=== PATIENT | male | born 1985 | race Two or more races ===

== ENCOUNTER 2021-06-07 20:29 | Inpatient (IN) | payer SELFPAY ==
[~2021-06-07] VITALS: Ht 167.6 cm; Wt 77.8 kg
--- NOTE | 2021-06-08 02:31 | ED.ADGEN ---
Past Medical History Past Surgical History: No Surgical History General Adult EDM: Chief Complaint: ABDOMINAL PAIN HPI: HPI: Patient is a 36 year old male coming in for abdominal pain of vomiting for 1.5 to 2 days. Says he has vomited twice. Says the pain is periumbilical but sometimes radiates up to the epigastric area. Says the vomit was pinkish in color. States he had a bowel movement that was normal about 8 hours prior to assessment, denies any diarrhea or bloody stools. Denies any changes with urination. Denies any cough, chest pain, or fevers. No past medical surgical history, has not take any medications for this has not taken medications daily basis. Denies alcohol tobacco or drugs Review of Systems: Review of Systems: All other systems within normal limits except for as noted in the HPI Current Medications: Current Medications Medications (Trade) Dose Ordered Sig/Ariana Start Time Stop Time Status Last Admin Dose Admin Info (CONTRAST GIVEN -- Rx MONITORING) 1 each PRN DAILY PRN 06/08/21 03:45 06/10/21 03:44 Iohexol (Omnipaque 300 Mg/ml) 75 ml 1X ONCE 06/08/21 04:00 06/08/21 04:01 DC 06/08/21 04:00 75 ML Multi-Ingredient Mouthwash/Gargle (Gi Cocktail) 20 ml 1X ONCE 06/08/21 03:30 06/08/21 03:31 DC 06/08/21 03:17 20 ML Ondansetron HCl (Zofran) 4 mg 1X ONCE 06/08/21 03:30 06/08/21 03:31 DC 06/08/21 03:14 4 MG Sodium Chloride 500 ml @ 500 mls/hr 1X ONCE 06/08/21 03:30 06/08/21 04:29 DC 06/08/21 03:12 500 MLS/HR Allergies: Allergies: Allergies Coded Allergies Type Severity Reaction Last Updated Verified No Known Drug Allergies 06/08/21 No Physical Exam: PE: Constitutional: Well developed, well nourished, no acute distress, non-toxic appearance. [] HENT: Normocephalic, atraumatic, bilateral external ears normal, nose normal. [] Eyes: PERRLA, conjunctiva normal, no discharge. [] Neck: No rigidity, supple, no stridor. [] Cardiovascular: Regular rate and rhythm, brisk cap refill [] Lungs & Thorax: Non labored symmetric respirations, no tachypnea or respiratory distress [] Abdomen: Soft, nondistended, epigastric pain, negative Quezada sign, no McBurney's point tenderness, no guarding. Skin: Warm, dry, no erythema, no rash. [] Back: Unremarkable Extremities: No deformities, range of motion grossly intact, no lower extremity edema [] Neurologic: Alert and oriented X 3, no focal deficits noted. [] Psychologic: Affect normal, judgement normal, mood normal. [] Current Patient Data: Labs: Laboratory Tests Test 06/08/21 03:00 White Blood Count 10.2 x10^3/uL (4.0-11.0) Red Blood Count 5.49 x10^6/uL (4.30-5.70) Hemoglobin 15.0 g/dL (13.0-17.5) Hematocrit 43.9 % (39.0-53.0) Mean Corpuscular Volume 80 fL (79-100) Mean Corpuscular Hemoglobin 27 pg (25-35) Mean Corpuscular Hemoglobin Concent 34 g/dL (31-37) Red Cell Distribution Width 13.8 % (11.5-14.5) Platelet Count 265 x10^3/uL (140-400) Neutrophils (%) (Auto) 69 % (31-73) Lymphocytes (%) (Auto) 23 % (24-48) L Monocytes (%) (Auto) 7 % (0-9) Eosinophils (%) (Auto) 1 % (0-3) Basophils (%) (Auto) 0 % (0-3) Neutrophils # (Auto) 7.1 x10^3/uL (1.8-7.7) Lymphocytes # (Auto) 2.3 x10^3/uL (1.0-4.8) Monocytes # (Auto) 0.7 x10^3/uL (0.0-1.1) Eosinophils # (Auto) 0.1 x10^3/uL (0.0-0.7) Basophils # (Auto) 0.0 x10^3/uL (0.0-0.2) Sodium Level 139 mmol/L (136-145) Potassium Level 4.1 mmol/L (3.5-5.1) Chloride Level 104 mmol/L (98-107) Carbon Dioxide Level 28 mmol/L (21-32) Anion Gap 7 (6-14) Blood Urea Nitrogen 12 mg/dL (8-26) Creatinine 0.9 mg/dL (0.7-1.3) Estimated GFR (Cockcroft-Gault) 96.0 BUN/Creatinine Ratio 13 (6-20) Glucose Level 109 mg/dL (70-99) H Calcium Level 8.8 mg/dL (8.5-10.1) Total Bilirubin 0.3 mg/dL (0.2-1.0) Aspartate Amino Transferase (AST) 27 U/L (15-37) Alanine Aminotransferase (ALT) 45 U/L (16-63) Alkaline Phosphatase 62 U/L (46-116) Total Protein 7.1 g/dL (6.4-8.2) Albumin 4.0 g/dL (3.4-5.0) Albumin/Globulin Ratio 1.3 (1.0-1.7) Lipase 90 U/L (73-393) Laboratory Tests 06/08/21 03:00 Laboratory Tests 06/08/21 03:00 Vital Signs: Vital Signs Date Time Temp Pulse Resp B/P (MAP) Pulse Ox O2 Delivery O2 Flow Rate FiO2 06/08/21 05:49 56 18 117/72 (87) 98 Room Air EKG: EKG: [] Heart Score: C/O Chest Pain: No Risk Factors: Risk Factors: DM, Current or recent (<one month) smoker, HTN, HLP, family history of CAD, obesity. Risk Scores: Score 0 - 3: 2.5% MACE over next 6 weeks - Discharge Home Score 4 - 6: 20.3% MACE over next 6 weeks - Admit for Clinical Observation Score 7 - 10: 72.7% MACE over next 6 weeks - Early Invasive Strategies Radiology/Procedures: Radiology/Procedures: [facility] [address] [place] [address] IMAGING REPORT Signed PATIENT: AKASH BLUM ACCOUNT: [id number] : 1985 LOCATION: ER AGE: 36 SEX: M EXAM STATUS: REG ER ORD. PHYSICIAN: TERESITA FREGOSO MD REASON: periumbilical pain. vomiting, OMNI 300 75 ML IV PROCEDURE: CT ABD PELV W/ IV CONTRST ONLY Exam: CT abdomen/pelvis with intravenous contrast Indication: Periumbilical pain, vomiting Comparison: None Technique: Helical CT imaging performed of the abdomen and pelvis after the intravenous administration of 75 mL Omnipaque 300 contrast. Sagittal and coronal reformats were obtained. One or more of the following individualized dose reduction techniques were utilized for this examination: 1. Automated exposure control 2. Adjustment of the mA and/or kV according to patient size 3. Use of iterative reconstruction technique. Findings: Lower chest: Mild posterior atelectasis in the lung bases. Heart is normal in size. Liver: Normal. Gallbladder/Biliary Tree: Normal. Pancreas: Normal. Spleen: Normal. Adrenal Glands: Normal. Kidneys/Ureters/Bladder: Kidneys are normal in size and enhance symmetrically. No hydronephrosis. Ureters and bladder are normal. Reproductive Organs: Prostate gland is normal. Stomach, small bowel, and colon: Stomach is normal. There is an abnormal dilated loop of small bowel in the left lower quadrant measuring 3.3 cm in diameter. There is a possible transition point on image 60, series 2. No significant wall thickening or surrounding inflammation. No pneumatosis. The rest of the small bowel is normal in caliber. The appendix and colon are normal.. Vasculature: Abdominal aorta is normal in caliber. Lymph Nodes: No lymphadenopathy. Peritoneum and retroperitoneum: No free fluid or free air. Bones: No acute osseous abnormalities. Impression: 1. Dilated loops of small bowel in the left lower quadrant could reflect small bowel obstruction or enteritis. There may be a transition point in the left lower quadrant. Electronically signed by: Teresita Howard MD (06/08/2021 4:54 AM) [id number] DICTATED and SIGNED BY: TERESITA HOWARD MD DATE: 06/08/21 [id number] [] Course & Med Decision Making: Course & Med Decision Making Pertinent Labs and Imaging studies reviewed. (See chart for details) Discussed with Dr. Musa, will admit to the hospitalist. [] Dragon Disclaimer: Dragon Disclaimer: This electronic medical record was generated, in whole or in part, using a voice recognition dictation system. Departure Departure Impression: Primary Impression: Small bowel obstruction Disposition: ADMITTED INPATIENT Admitting Physician: NAIN Condition: STABLE Referrals: NO PCP (PCP) TERESITA FREGOSO MD Jun 08, 2021 02:31
[2021-06-08 03:07] LABS: BASO % 0 % (0-3); EOS # 0.1 x10^3/uL (0.0-0.7); EOS % 1 % (0-3); HEMATOCRIT 43.9 % (39.0-53.0); LYMPH # 2.3 x10^3/uL (1.0-4.8); LYMPH % 23 % (24-48); MEAN CORPUSCULAR HEMOGLOBIN 27 pg (25-35); MEAN CORPUSCULAR HGB CONC 34 g/dL (31-37); MEAN CORPUSCULAR VOLUME 80 fL (79-100); MONO # 0.7 x10^3/uL (0.0-1.1); MONO % 7 % (0-9); NEUT # 7.1 x10^3/uL (1.8-7.7); NEUT % 69 % (31-73); PLATELET COUNT 265 x10^3/uL (140-400); RED BLOOD COUNT 5.49 x10^6/uL (4.30-5.70); RED CELL DISTRIBUTION WIDTH 13.8 % (11.5-14.5); WHITE BLOOD COUNT 10.2 x10^3/uL (4.0-11.0)
[2021-06-08 03:17] LABS: CALCIUM 8.8 mg/dL (8.5-10.1); CREATININE 0.9 mg/dL (0.7-1.3); POTASSIUM 4.1 mmol/L (3.5-5.1)
[2021-06-08 03:25] LABS: ALBUMIN/GLOBULIN RATIO 1.3 (1.0-1.7); TOTAL BILIRUBIN 0.3 mg/dL (0.2-1.0); TOTAL PROTEIN 7.1 g/dL (6.4-8.2)
[2021-06-08] MEDS ORDERED: IV NORMAL SALINE 500ML BAG 500 ML IV ONE (03:30)
[2021-06-08] MEDS ORDERED: ONDANSETRON PF 4 MG/2 ML VIAL. IVP ONE (03:30)
[2021-06-08] MEDS ORDERED: LIDO:MAALOX 1:1 20 ML SINGLE DOSE. SWSW ONE (03:30)
[2021-06-08] MEDS ORDERED: CONTRAST GIVEN. MC PRN (03:45)
[2021-06-08] MEDS ORDERED: IOHEXOL 300 MG/ML 100ML VIAL. IV ONE (04:00)
--- NOTE | 2021-06-08 04:56 | RAD ---
Exam: CT abdomen/pelvis with intravenous contrast Indication: Periumbilical pain, vomiting Comparison: None Technique: Helical CT imaging performed of the abdomen and pelvis after the intravenous administratio n of 75 mL Omnipaque 300 contrast. Sagittal and coronal reformats were obtained. One or more of the following individualized dose reduction techniques were utilized for this examinat ion: 1. Automated exposure control 2. Adjustment of the mA and/or kV according to patient size 3. Use of iterative reconstruction technique. Findings: Lower chest: Mild posterior atelectasis in the lung bases. Heart is normal in size. Liver: Normal. Gallbladder/Biliary Tree: Normal. Pancreas: Normal. Spleen: Normal. Adrenal Glands: Normal. Kidneys/Ureters/Bladder: Kidneys are normal in size and enhance symmetrically. No hydronephrosis. Ure ters and bladder are normal. Reproductive Organs: Prostate gland is normal. Stomach, small bowel, and colon: Stomach is normal. There is an abnormal dilated loop of small bowel in the left lower quadrant measuring 3.3 cm in diameter. There is a possible transition point on imag e 60, series 2. No significant wall thickening or surrounding inflammation. No pneumatosis. The rest of the small bowel is normal in caliber. The appendix and colon are normal.. Vasculature: Abdominal aorta is normal in caliber. Lymph Nodes: No lymphadenopathy. Peritoneum and retroperitoneum: No free fluid or free air. Bones: No acute osseous abnormalities. Impression: 1. Dilated loops of small bowel in the left lower quadrant could reflect small bowel obstruction or enteritis. There may be a transition point in the left lower quadrant. Electronically signed by: Teresita Howard MD (06/08/2021 4:54 AM) [id number]
[2021-06-08] MEDS ORDERED: ONDANSETRON PF 4 MG/2 ML VIAL. IVP PRN ×2 (06:30→09:15)
[2021-06-08] MEDS ORDERED: MORPHINE SULFATE 4 MG/ML INJ. IVP PRN (06:30)
--- NOTE | 2021-06-08 07:01 | PDOC1 ---
History and Physical Date of Admission Date of Admission DATE: 06/08/21 TIME: 06:49 Identification/Chief Complaint Chief Complaint Abdominal pain Source Source: Patient History of Present Illness History of Present Illness Patient 36-year-old male with no significant past medical history presents to ED with complaints of abdominal pain since yesterday around 1:00 PM. He reports periumbilical abdominal pain that radiates to his epigastric area with associated nausea and vomiting x2. States his last bowel movement was approximately 8 hours prior to arrival in the ED. Labs on admission were largely unremarkable. CT abdomen/pelvis showed dilated loops of small bowel in the left lower quadrant could reflect small bowel obstruction or enteritis. Will admit patient for further medical management. Past Medical History Past Medical History Denies medical history Past Surgical History Past Surgical History Denies surgical history Family History Family History Denies significant family history Social History Smoke: No ALCOHOL: none Drugs: None Current Problem List Problem List Problems Medical Problems: (1) Small bowel obstruction Status: Acute Current Medications Current Medications Current Medications Sodium Chloride 500 ml @ 500 mls/hr 1X ONCE IV Last administered on 06/08/21at 03:12; Start 06/08/21 at 03:30; Stop 06/08/21 at 04:29; Status DC Multi-Ingredient Mouthwash/Gargle (Gi Cocktail) 20 ml 1X ONCE SWSW Last a dministered on 06/08/21at 03:17; Start 06/08/21 at 03:30; Stop 06/08/21 at 03:31; Status DC Ondansetron HCl (Zofran) 4 mg 1X ONCE IVP Last administered on 06/08/21at 03:14; Start 06/08/21 at 03:30; Stop 06/08/21 at 03:31; Status DC Iohexol (Omnipaque 300 Mg/ml) 75 ml 1X ONCE IV Last administered on 06/08/21at 04:00; Start 06/08/21 at 04:00; Stop 06/08/21 at 04:01; Status DC Info (CONTRAST GIVEN -- Rx MONITORING) 1 each PRN DAILY PRN MC SEE COMMENTS; Start 06/08/21 at 03:45; Stop 06/10/21 at 03:44 Ondansetron HCl (Zofran) 4 mg PRN Q8HRS PRN IVP NAUSEA/VOMITING 1ST CHOICE; Start 06/08/21 at 06:30; Stop 06/09/21 at 06:29 Morphine Sulfate (Morphine Sulfate) 4 mg PRN Q2HR PRN IVP SEVERE PAIN 7-10; Start 06/08/21 at 06:30; Stop 06/09/21 at 06:29 Sodium Chloride 1,000 ml @ 100 mls/hr Q10H IV ; Start 06/08/21 at 07:00; Stop 06/09/21 at 06:59 Allergies Allergies: Coded Allergies: No Known Drug Allergies (Unverified , 06/08/21) ROS Review of System GENERAL: No history of weight change, weakness or fevers. SKIN: No bruising, hair changes or rashes. EYES: No blurred, double or loss of vision. NOSE AND THROAT: No history of nosebleeds, hoarseness or sore throat. HEART: Denies chest pain, denies palpitations. LUNGS: Denies cough, hemoptysis, wheezing or shortness of breath. GASTROINTESTINAL: Abdominal pain, nausea, vomiting. Denies diarrhea. GENITOURINARY: Denies dysuria, frequency, urgency, hematuria. NEUROLOGIC: Denies history of numbness, tingling, tremor or weakness. PSYCHIATRIC: Denies anxiety, denies depression. ENDOCRINE: No history of heat or cold intolerance, polyuria or polydipsia. EXTREMITIES: Denies muscle weakness, joint pain, pain on walking or stiffness. Physical Exam Physical Exam General: Alert, Oriented X3, Cooperative, mild distress HEENT: PERRLA, EOMI Lungs: Clear to auscultation, Normal air movement Heart: RRR, no murmurs Cardiovascular: S1, S2 Abdomen: Periumbilical abdominal tenderness. Decreased bowel sounds. Extremities: No clubbing, No cyanosis Skin: No rashes, No significant lesion Neuro: Normal speech, Normal tone, Sensation intact Psych/Mental Status: Mental status NL, Mood NL Vitals Vitals Vital Signs Date Time Temp Pulse Resp B/P (MAP) Pulse Ox O2 Delivery O2 Flow Rate FiO2 06/08/21 05:49 56 18 117/72 (87) 98 Room Air Labs Labs Laboratory Tests Test 06/08/21 03:00 White Blood Count 10.2 x10^3/uL (4.0-11.0) Red Blood Count 5.49 x10^6/uL (4.30-5.70) Hemoglobin 15.0 g/dL (13.0-17.5) Hematocrit 43.9 % (39.0-53.0) Mean Corpuscular Volume 80 fL (79-100) Mean Corpuscular Hemoglobin 27 pg (25-35) Mean Corpuscular Hemoglobin Concent 34 g/dL (31-37) Red Cell Distribution Width 13.8 % (11.5-14.5) Platelet Count 265 x10^3/uL (140-400) Neutrophils (%) (Auto) 69 % (31-73) Lymphocytes (%) (Auto) 23 % (24-48) Monocytes (%) (Auto) 7 % (0-9) Eosinophils (%) (Auto) 1 % (0-3) Basophils (%) (Auto) 0 % (0-3) Neutrophils # (Auto) 7.1 x10^3/uL (1.8-7.7) Lymphocytes # (Auto) 2.3 x10^3/uL (1.0-4.8) Monocytes # (Auto) 0.7 x10^3/uL (0.0-1.1) Eosinophils # (Auto) 0.1 x10^3/uL (0.0-0.7) Basophils # (Auto) 0.0 x10^3/uL (0.0-0.2) Sodium Level 139 mmol/L (136-145) Potassium Level 4.1 mmol/L (3.5-5.1) Chloride Level 104 mmol/L (98-107) Carbon Dioxide Level 28 mmol/L (21-32) Anion Gap 7 (6-14) Blood Urea Nitrogen 12 mg/dL (8-26) Creatinine 0.9 mg/dL (0.7-1.3) Estimated GFR (Cockcroft-Gault) 96.0 BUN/Creatinine Ratio 13 (6-20) Glucose Level 109 mg/dL (70-99) Calcium Level 8.8 mg/dL (8.5-10.1) Total Bilirubin 0.3 mg/dL (0.2-1.0) Aspartate Amino Transf (AST/SGOT) 27 U/L (15-37) Alanine Aminotransferase (ALT/SGPT) 45 U/L (16-63) Alkaline Phosphatase 62 U/L (46-116) Total Protein 7.1 g/dL (6.4-8.2) Albumin 4.0 g/dL (3.4-5.0) Albumin/Globulin Ratio 1.3 (1.0-1.7) Lipase 90 U/L (73-393) Laboratory Tests Test 06/08/21 03:00 White Blood Count 10.2 x10^3/uL (4.0-11.0) Red Blood Count 5.49 x10^6/uL (4.30-5.70) Hemoglobin 15.0 g/dL (13.0-17.5) Hematocrit 43.9 % (39.0-53.0) Mean Corpuscular Volume 80 fL (79-100) Mean Corpuscular Hemoglobin 27 pg (25-35) Mean Corpuscular Hemoglobin Concent 34 g/dL (31-37) Red Cell Distribution Width 13.8 % (11.5-14.5) Platelet Count 265 x10^3/uL (140-400) Neutrophils (%) (Auto) 69 % (31-73) Lymphocytes (%) (Auto) 23 % (24-48) Monocytes (%) (Auto) 7 % (0-9) Eosinophils (%) (Auto) 1 % (0-3) Basophils (%) (Auto) 0 % (0-3) Neutrophils # (Auto) 7.1 x10^3/uL (1.8-7.7) Lymphocytes # (Auto) 2.3 x10^3/uL (1.0-4.8) Monocytes # (Auto) 0.7 x10^3/uL (0.0-1.1) Eosinophils # (Auto) 0.1 x10^3/uL (0.0-0.7) Basophils # (Auto) 0.0 x10^3/uL (0.0-0.2) Sodium Level 139 mmol/L (136-145) Potassium Level 4.1 mmol/L (3.5-5.1) Chloride Level 104 mmol/L (98-107) Carbon Dioxide Level 28 mmol/L (21-32) Anion Gap 7 (6-14) Blood Urea Nitrogen 12 mg/dL (8-26) Creatinine 0.9 mg/dL (0.7-1.3) Estimated GFR (Cockcroft-Gault) 96.0 BUN/Creatinine Ratio 13 (6-20) Glucose Level 109 mg/dL (70-99) Calcium Level 8.8 mg/dL (8.5-10.1) Total Bilirubin 0.3 mg/dL (0.2-1.0) Aspartate Amino Transf (AST/SGOT) 27 U/L (15-37) Alanine Aminotransferase (ALT/SGPT) 45 U/L (16-63) Alkaline Phosphatase 62 U/L (46-116) Total Protein 7.1 g/dL (6.4-8.2) Albumin 4.0 g/dL (3.4-5.0) Albumin/Globulin Ratio 1.3 (1.0-1.7) Lipase 90 U/L (73-393) Images Images PATIENT: AKASH BLUM ACCOUNT: [id number] : 1985 LOCATION: ER AGE: 36 SEX: M EXAM STATUS: REG ER ORD. PHYSICIAN: JULIO FREGOSO MD REASON: periumbilical pain. vomiting, OMNI 300 75 ML IV PROCEDURE: CT ABD PELV W/ IV CONTRST ONLY Exam: CT abdomen/pelvis with intravenous contrast Indication: Periumbilical pain, vomiting Comparison: None Technique: Helical CT imaging performed of the abdomen and pelvis after the intravenous administration of 75 mL Omnipaque 300 contrast. Sagittal and coronal reformats were obtained. One or more of the following individualized dose reduction techniques were utilized for this examination: 1. Automated exposure control 2. Adjustment of the mA and/or kV according to patient size 3. Use of iterative reconstruction technique. Findings: Lower chest: Mild posterior atelectasis in the lung bases. Heart is normal in size. Liver: Normal. Gallbladder/Biliary Tree: Normal. Pancreas: Normal. Spleen: Normal. Adrenal Glands: Normal. Kidneys/Ureters/Bladder: Kidneys are normal in size and enhance symmetrically. No hydronephrosis. Ureters and bladder are normal. Reproductive Organs: Prostate gland is normal. Stomach, small bowel, and colon: Stomach is normal. There is an abnormal dilated loop of small bowel in the left lower quadrant measuring 3.3 cm in diameter. There is a possible transition point on image 60, series 2. No significant wall thickening or surrounding inflammation. No pneumatosis. The rest of the small bowel is normal in caliber. The appendix and colon are normal.. Vasculature: Abdominal aorta is normal in caliber. Lymph Nodes: No lymphadenopathy. Peritoneum and retroperitoneum: No free fluid or free air. Bones: No acute osseous abnormalities. Impression: 1. Dilated loops of small bowel in the left lower quadrant could reflect small bowel obstruction or enteritis. There may be a transition point in the left lower quadrant. VTE Prophylaxis Ordered VTE Prophylaxis Devices: Yes VTE Pharmacological Prophylaxi: No Assessment/Plan Assessment/Plan Small bowel obstruction Plan: Consult placed to general surgery and GI Keep patient n.p.o. and provide IV fluids IV pain and IV nausea medications FEN - NPO, then advance diet as tolerated PPX - SCDs FULL CODE Dispo - inpatient for above Justifications for Admission Other Justification JANET FERGUSON MD Jun 08, 2021 07:01
[2021-06-08 07:17] LABS: BILIRUBIN,URINE NEGATIVE (NEG); CLARITY,URINE CLEAR; COLOR,URINE YELLOW; NITRITE,URINE NEGATIVE (NEG); PROTEIN,URINE NEGATIVE (NEG-TRACE); UROBILINOGEN,URINE 0.2 mg/dL (0.2 mg/dL)
[2021-06-08 07:23] LABS: BARBITURATES NEG (NEG); BENZODIAZEPINES NEG (NEG); CANNABINOIDS NEG (NEG); COCAINE NEG (NEG); METHADONE NEG (NEG); OPIATES NEG (NEG); PHENCYCLIDINE NEG (NEG)
[2021-06-08 07:29] LABS: AMPHETAMINE/METHAMPHETAMINE NEG (NEG)
[2021-06-08 07:41] LABS: BACTERIA,URINE 0 /HPF (0-FEW); RBC,URINE 0 /HPF (0-2); WBC,URINE 0 /HPF (0-4)
--- NOTE | 2021-06-08 09:13 | PDOC2 ---
MAGALI YAN UNIVERSITY ADMINISTRATIVE ASSISTANT 06/08/21 0913: CONSULT Date of Consult Date of Consult DATE: 06/08/21 TIME: 09:08 Reason for Consult Reason for Consult: SBO Referring Physician Referring Physician: ER Identification/Chief Complaint Chief Complaint abdominal pain Source Source: Chart review, Patient History of Present Illness Reason for Visit: 2 days of abdominal pain and emesis. had a stool prior to er evaluation. Denies diarrhea. Improved with medication. no surgical hx Past Medical History Past Medical History no pertinent hx Past Surgical History Past Surgical History: No pertinent history Family History Family History: Family History Unknown Social History <1 pack per day ALCOHOL: occassional Drugs: None Lives: with Family Current Problem List Problem List Problems Medical Problems: (1) Small bowel obstruction Status: Acute Current Medications Current Medications Current Medications Sodium Chloride 500 ml @ 500 mls/hr 1X ONCE IV Last administered on 06/08/21at 03:12; Start 06/08/21 at 03:30; Stop 06/08/21 at 04:29; Status DC Multi-Ingredient Mouthwash/Gargle (Gi Cocktail) 20 ml 1X ONCE SWSW Last administered on 06/08/21at 03:17; Start 06/08/21 at 03:30; Stop 06/08/21 at 03:31; Status DC Ondansetron HCl (Zofran) 4 mg 1X ONCE IVP Last administered on 06/08/21at 03:14; Start 06/08/21 at 03:30; Stop 06/08/21 at 03:31; Status DC Iohexol (Omnipaque 300 Mg/ml) 75 ml 1X ONCE IV Last administered on 06/08/21at 04:00; Start 06/08/21 at 04:00; Stop 06/08/21 at 04:01; Status DC Info (CONTRAST GIVEN -- Rx MONITORING) 1 each PRN DAILY PRN MC SEE COMMENTS; Start 06/08/21 at 03:45; Stop 06/10/21 at 03:44 Ondansetron HCl (Zofran) 4 mg PRN Q8HRS PRN IVP NAUSEA/VOMITING 1ST CHOICE; Start 06/08/21 at 06:30; Stop 06/09/21 at 06:29 Morphine Sulfate (Morphine Sulfate) 4 mg PRN Q2HR PRN IVP SEVERE PAIN 7-10; Start 06/08/21 at 06:30; Stop 06/09/21 at 06:29 Sodium Chloride 1,000 ml @ 100 mls/hr Q10H IV ; Start 06/08/21 at 07:00; Stop 06/09/21 at 06:59 Ondansetron HCl (Zofran) 4 mg PRN Q6HRS PRN IVP NAUSEA/VOMITING; Start 06/08/21 at 09:15; Status UNV Al Hydroxide/Mg Hydroxide (Mylanta Plus Xs) 30 ml PRN Q3HRS PRN PO HEARTBURN / GAS; Start 06/08/21 at 09:15; Status UNV Calcium Carbonate/ Glycine (Tums) 500 mg PRN Q3HRS PRN PO UPSET STOMACH; Start 06/08/21 at 09:15; Status UNV Zolpidem Tartrate (Ambien) 5 mg PRN QHS PRN PO INSOMNIA, MAY REPEAT IN 1HR; Start 06/08/21 at 09:15; Status UNV Acetaminophen (Tylenol) 650 mg PRN Q6HRS PRN PO Headaches, Temp > 101.5F; Start 06/08/21 at 09:15; Status UNV Magnesium Hydroxide (Milk Of Magnesia) 2,400 mg PRN Q12HR PRN PO CONSTIPATION; Start 06/08/21 at 09:15; Status UNV Allergies Allergies: Coded Allergies: No Known Drug Allergies (Unverified , 06/08/21) ROS General: No: Chills, Other (fevers ) PSYCHOLOGICAL ROS: No: Anxiety, Depression Eyes: No Blurry vision, No Double vision HEENT: No: Heacaches, Sore Throat Hematological and Lymphatic: No: Bleeding Problems, Blood Clots Respiratory: No: Cough, Shortness of breath Cardiovascular: No Chest Pain, No Palpitations Gastrointestinal: Yes Other (see hpi) Genitourinary: No Dysuria, No Hematuria Musculoskeletal: No Joint Pain, No Muscle Pain Neurological: No Impaired Coord/balance, No Numbness/Tingling Skin: No Pruritus, No Rash Physical Exam General: Alert, Oriented X3, Cooperative HEENT: Atraumatic, PERRLA Lungs: Clear to auscultation, Normal air movement Heart: Regular rate, Normal S1, Normal S2 Abdomen: Soft, Other (mild ttp lower abdomen, ND) Extremities: No clubbing, No cyanosis Skin: No rashes, No breakdown Neuro: Normal gait, Normal speech Psych/Mental Status: Mental status NL, Mood NL MUSCULOSKELETAL: No deformity, No swelling Vitals VITALS Vital Signs Date Time Temp Pulse Resp B/P (MAP) Pulse Ox O2 Delivery O2 Flow Rate FiO2 06/08/21 05:49 56 18 117/72 (87) 98 Room Air Labs Labs Laboratory Tests Test 06/08/21 03:00 06/08/21 06:30 White Blood Count 10.2 x10^3/uL (4.0-11.0) Red Blood Count 5.49 x10^6/uL (4.30-5.70) Hemoglobin 15.0 g/dL (13.0-17.5) Hematocrit 43.9 % (39.0-53.0) Mean Corpuscular Volume 80 fL (79-100) Mean Corpuscular Hemoglobin 27 pg (25-35) Mean Corpuscular Hemoglobin Concent 34 g/dL (31-37) Red Cell Distribution Width 13.8 % (11.5-14.5) Platelet Count 265 x10^3/uL (140-400) Neutrophils (%) (Auto) 69 % (31-73) Lymphocytes (%) (Auto) 23 % (24-48) Monocytes (%) (Auto) 7 % (0-9) Eosinophils (%) (Auto) 1 % (0-3) Basophils (%) (Auto) 0 % (0-3) Neutrophils # (Auto) 7.1 x10^3/uL (1.8-7.7) Lymphocytes # (Auto) 2.3 x10^3/uL (1.0-4.8) Monocytes # (Auto) 0.7 x10^3/uL (0.0-1.1) Eosinophils # (Auto) 0.1 x10^3/uL (0.0-0.7) Basophils # (Auto) 0.0 x10^3/uL (0.0-0.2) Sodium Level 139 mmol/L (136-145) Potassium Level 4.1 mmol/L (3.5-5.1) Chloride Level 104 mmol/L (98-107) Carbon Dioxide Level 28 mmol/L (21-32) Anion Gap 7 (6-14) Blood Urea Nitrogen 12 mg/dL (8-26) Creatinine 0.9 mg/dL (0.7-1.3) Estimated GFR (Cockcroft-Gault) 96.0 BUN/Creatinine Ratio 13 (6-20) Glucose Level 109 mg/dL (70-99) Calcium Level 8.8 mg/dL (8.5-10.1) Total Bilirubin 0.3 mg/dL (0.2-1.0) Aspartate Amino Transf (AST/SGOT) 27 U/L (15-37) Alanine Aminotransferase (ALT/SGPT) 45 U/L (16-63) Alkaline Phosphatase 62 U/L (46-116) Total Protein 7.1 g/dL (6.4-8.2) Albumin 4.0 g/dL (3.4-5.0) Albumin/Globulin Ratio 1.3 (1.0-1.7) Lipase 90 U/L (73-393) Urine Collection Type Unknown Urine Color Yellow Urine Clarity Clear Urine pH 7.0 (<5.0-8.0) Urine Specific [place] >=1.030 (1.000-1.030) Urine Protein Negative mg/dL (NEG-TRACE) Urine Glucose (UA) Negative mg/dL (NEG) Urine Ketones (Stick) Negative mg/dL (NEG) Urine Blood Negative (NEG) Urine Nitrite Negative (NEG) Urine Bilirubin Negative (NEG) Urine Urobilinogen Dipstick 0.2 mg/dL (0.2 mg/dL) Urine Leukocyte Esterase Negative (NEG) Urine RBC 0 /HPF (0-2) Urine WBC 0 /HPF (0-4) Urine Squamous Epithelial Cells Few /LPF Urine Bacteria 0 /HPF (0-FEW) Urine Opiates Screen Neg (NEG) Urine Methadone Screen Neg (NEG) Urine Barbiturates Neg (NEG) Urine Phencyclidine Screen Neg (NEG) Urine Amphetamine/Methamphetamine Neg (NEG) Urine Benzodiazepines Screen Neg (NEG) Urine Cocaine Screen Neg (NEG) Urine Cannabinoids Screen Neg (NEG) Urine Ethyl Alcohol Neg (NEG) Laboratory Tests Test 06/08/21 03:00 06/08/21 06:30 White Blood Count 10.2 x10^3/uL (4.0-11.0) Red Blood Count 5.49 x10^6/uL (4.30-5.70) Hemoglobin 15.0 g/dL (13.0-17.5) Hematocrit 43.9 % (39.0-53.0) Mean Corpuscular Volume 80 fL (79-100) Mean Corpuscular Hemoglobin 27 pg (25-35) Mean Corpuscular Hemoglobin Concent 34 g/dL (31-37) Red Cell Distribution Width 13.8 % (11.5-14.5) Platelet Count 265 x10^3/uL (140-400) Neutrophils (%) (Auto) 69 % (31-73) Lymphocytes (%) (Auto) 23 % (24-48) Monocytes (%) (Auto) 7 % (0-9) Eosinophils (%) (Auto) 1 % (0-3) Basophils (%) (Auto) 0 % (0-3) Neutrophils # (Auto) 7.1 x10^3/uL (1.8-7.7) Lymphocytes # (Auto) 2.3 x10^3/uL (1.0-4.8) Monocytes # (Auto) 0.7 x10^3/uL (0.0-1.1) Eosinophils # (Auto) 0.1 x10^3/uL (0.0-0.7) Basophils # (Auto) 0.0 x10^3/uL (0.0-0.2) Sodium Level 139 mmol/L (136-145) Potassium Level 4.1 mmol/L (3.5-5.1) Chloride Level 104 mmol/L (98-107) Carbon Dioxide Level 28 mmol/L (21-32) Anion Gap 7 (6-14) Blood Urea Nitrogen 12 mg/dL (8-26) Creatinine 0.9 mg/dL (0.7-1.3) Estimated GFR (Cockcroft-Gault) 96.0 BUN/Creatinine Ratio 13 (6-20) Glucose Level 109 mg/dL (70-99) Calcium Level 8.8 mg/dL (8.5-10.1) Total Bilirubin 0.3 mg/dL (0.2-1.0) Aspartate Amino Transf (AST/SGOT) 27 U/L (15-37) Alanine Aminotransferase (ALT/SGPT) 45 U/L (16-63) Alkaline Phosphatase 62 U/L (46-116) Total Protein 7.1 g/dL (6.4-8.2) Albumin 4.0 g/dL (3.4-5.0) Albumin/Globulin Ratio 1.3 (1.0-1.7) Lipase 90 U/L (73-393) Urine Collection Type Unknown Urine Color Yellow Urine Clarity Clear Urine pH 7.0 (<5.0-8.0) Urine Specific [place] >=1.030 (1.000-1.030) Urine Protein Negative mg/dL (NEG-TRACE) Urine Glucose (UA) Negative mg/dL (NEG) Urine Ketones (Stick) Negative mg/dL (NEG) Urine Blood Negative (NEG) Urine Nitrite Negative (NEG) Urine Bilirubin Negative (NEG) Urine Urobilinogen Dipstick 0.2 mg/dL (0.2 mg/dL) Urine Leukocyte Esterase Negative (NEG) Urine RBC 0 /HPF (0-2) Urine WBC 0 /HPF (0-4) Urine Squamous Epithelial Cells Few /LPF Urine Bacteria 0 /HPF (0-FEW) Urine Opiates Screen Neg (NEG) Urine Methadone Screen Neg (NEG) Urine Barbiturates Neg (NEG) Urine Phencyclidine Screen Neg (NEG) Urine Amphetamine/Methamphetamine Neg (NEG) Urine Benzodiazepines Screen Neg (NEG) Urine Cocaine Screen Neg (NEG) Urine Cannabinoids Screen Neg (NEG) Urine Ethyl Alcohol Neg (NEG) Assessment/Plan Assessment/Plan SBO vs ileus/enteritis bowel rest repeat xr in AM ANDREA NOGUEIRA MD 06/08/21 1315: CONSULT Assessment/Plan Assessment/Plan Pt seen and examined. Agree with Ms. Yan's note Pt feels better, periumbilical pain abd soft, ND, mild periumbilical pain cont bowel rest and XR in AM. Thanks for consult! MAGALI YAN APRN Jun 08, 2021 09:13 ANDREA NOGUEIRA MD Jun 08, 2021 13:15
[2021-06-08] MEDS ORDERED: MAG HYDROX/ALUMINUM HYD/SIMETH 30 ML ORAL.SUSP PO PRN (09:15)
[2021-06-08] MEDS ORDERED: ZOLPIDEM 5 MG TABLET. PO PRN (09:15)
[2021-06-08] MEDS ORDERED: CALCIUM CARBONATE 500 MG TAB.CHEW PO PRN (09:15)
[2021-06-08] MEDS ORDERED: MAGNESIUM HYDROXIDE 2,400 MG/30 ML ORAL.SUSP. PO PRN (09:15)
[2021-06-08] MEDS ORDERED: ACETAMINOPHEN 325 MG TABLET. PO PRN (09:15)
[2021-06-08] MEDS: IV NORMAL SALINE 1000ML BAG 1,000 ML IV SCH ×2 (09:17→17:50)
--- NOTE | 2021-06-08 09:49 | PDOC2 ---
GI CONSULT Date of Service: DATE: 06/08/21 TIME: 09:48 Reason For Consult: SBO HPI: HPI: 36 y/o Sammarinese-speaking male in ER. Translation help from family member at [employer]. Began Tuesday w/ back pain while he was cleaning. Pain spread to belly button on Tuesday, then started vomiting. Had a small stool yesterday before abdominal pain began. Pain is "squeezing" and comes and goes. Pain radiated from umbilicus straight up toward chest "like reflux." Denies hematemesis, hematochezia, melena, chronic n/v or abd pain, chronic reflux/heartburn, dysphagia, chronic constipation, diarrhea, or weight loss. No previous EGD or colonoscopy. Denies liver, GB, pancreas, and PUD history. No COVID vaccine. PMH: PMH: denies FH: Family History: No pertinent hx (no GI cancers or IBD) Social History: Smoke: <1 pack per day (family member says none) ALCOHOL: occassional (family member says none) Drugs: None ROS: per HPI Vitals: Vitals: Vital Signs Date Time Temp Pulse Resp B/P (MAP) Pulse Ox O2 Delivery O2 Flow Rate FiO2 06/08/21 09:30 50 106/73 (84) 97 Room Air 06/08/21 05:49 18 Labs: Labs: Laboratory Tests Test 06/08/21 03:00 06/08/21 06:30 White Blood Count 10.2 x10^3/uL (4.0-11.0) Red Blood Count 5.49 x10^6/uL (4.30-5.70) Hemoglobin 15.0 g/dL (13.0-17.5) Hematocrit 43.9 % (39.0-53.0) Mean Corpuscular Volume 80 fL (79-100) Mean Corpuscular Hemoglobin 27 pg (25-35) Mean Corpuscular Hemoglobin Concent 34 g/dL (31-37) Red Cell Distribution Width 13.8 % (11.5-14.5) Platelet Count 265 x10^3/uL (140-400) Neutrophils (%) (Auto) 69 % (31-73) Lymphocytes (%) (Auto) 23 % (24-48) Monocytes (%) (Auto) 7 % (0-9) Eosinophils (%) (Auto) 1 % (0-3) Basophils (%) (Auto) 0 % (0-3) Neutrophils # (Auto) 7.1 x10^3/uL (1.8-7.7) Lymphocytes # (Auto) 2.3 x10^3/uL (1.0-4.8) Monocytes # (Auto) 0.7 x10^3/uL (0.0-1.1) Eosinophils # (Auto) 0.1 x10^3/uL (0.0-0.7) Basophils # (Auto) 0.0 x10^3/uL (0.0-0.2) Sodium Level 139 mmol/L (136-145) Potassium Level 4.1 mmol/L (3.5-5.1) Chloride Level 104 mmol/L (98-107) Carbon Dioxide Level 28 mmol/L (21-32) Anion Gap 7 (6-14) Blood Urea Nitrogen 12 mg/dL (8-26) Creatinine 0.9 mg/dL (0.7-1.3) Estimated GFR (Cockcroft-Gault) 96.0 BUN/Creatinine Ratio 13 (6-20) Glucose Level 109 mg/dL (70-99) Calcium Level 8.8 mg/dL (8.5-10.1) Total Bilirubin 0.3 mg/dL (0.2-1.0) Aspartate Amino Transf (AST/SGOT) 27 U/L (15-37) Alanine Aminotransferase (ALT/SGPT) 45 U/L (16-63) Alkaline Phosphatase 62 U/L (46-116) Total Protein 7.1 g/dL (6.4-8.2) Albumin 4.0 g/dL (3.4-5.0) Albumin/Globulin Ratio 1.3 (1.0-1.7) Lipase 90 U/L (73-393) Urine Collection Type Unknown Urine Color Yellow Urine Clarity Clear Urine pH 7.0 (<5.0-8.0) Urine Specific [place] >=1.030 (1.000-1.030) Urine Protein Negative mg/dL (NEG-TRACE) Urine Glucose (UA) Negative mg/dL (NEG) Urine Ketones (Stick) Negative mg/dL (NEG) Urine Blood Negative (NEG) Urine Nitrite Negative (NEG) Urine Bilirubin Negative (NEG) Urine Urobilinogen Dipstick 0.2 mg/dL (0.2 mg/dL) Urine Leukocyte Esterase Negative (NEG) Urine RBC 0 /HPF (0-2) Urine WBC 0 /HPF (0-4) Urine Squamous Epithelial Cells Few /LPF Urine Bacteria 0 /HPF (0-FEW) Urine Opiates Screen Neg (NEG) Urine Methadone Screen Neg (NEG) Urine Barbiturates Neg (NEG) Urine Phencyclidine Screen Neg (NEG) Urine Amphetamine/Methamphetamine Neg (NEG) Urine Benzodiazepines Screen Neg (NEG) Urine Cocaine Screen Neg (NEG) Urine Cannabinoids Screen Neg (NEG) Urine Ethyl Alcohol Neg (NEG) Allergies: Coded Allergies: No Known Drug Allergies (Unverified , 06/08/21) Medications: Current Medications Medications (Trade) Dose Ordered Sig/Ariana Route PRN Reason Start Time Stop Time Status Last Admin Dose Admin Sodium Chloride 500 ml @ 500 mls/hr 1X ONCE IV 06/08/21 03:30 06/08/21 04:29 DC 06/08/21 03:12 Multi-Ingredient Mouthwash/Gargle (Gi Cocktail) 20 ml 1X ONCE SWSW 06/08/21 03:30 06/08/21 03:31 DC 06/08/21 03:17 Ondansetron HCl (Zofran) 4 mg 1X ONCE IVP 06/08/21 03:30 06/08/21 03:31 DC 06/08/21 03:14 Iohexol (Omnipaque 300 Mg/ml) 75 ml 1X ONCE IV 06/08/21 04:00 06/08/21 04:01 DC 06/08/21 04:00 Sodium Chloride 1,000 ml @ 100 mls/hr Q10H IV 06/08/21 07:00 06/09/21 06:59 06/08/21 09:17 Imaging: Imaging: CT A/P Impression: 1. Dilated loops of small bowel in the left lower quadrant could reflect small bowel obstruction or enteritis. There may be a transition point in the left lower quadrant. PE: GEN: NAD HEENT: Atraumatic, PERRL LUNGS: CTAB HEART: RR (HR 50s) ABD: quiet, soft, periumbilical tenderness EXTREMITY: No edema SKIN: No rashes, no jaundice NEURO/PSYCH: A & O 3 A/P: A/P: Mid/upper abd pain, vomiting, ?constipation Abnormal CT report w/ concern for enteritis vs SBO - no past surgeries CRC screen - average risk -- Surgery following, plans for bowel rest and interval x-ray in a.m. Add IV acid-loan service officer. CALOS AZUL Jun 08, 2021 09:49
[2021-06-08] MEDS: PANTOPRAZOLE IV PUSH 40 MG VIAL. IVP SCH (10:58)
[2021-06-08 19:00] VITALS: BP 122/50
--- NOTE | 2021-06-08 19:25 | NUR ---
Patient admitted from ER to room 440 per cart. Admitting diagnosis: Abdominal pain with nausea and vomiting x2 days. CT scan showed SBO vs enteritis. Patient is NPO. Patient is alert and orinted x4. Patient is sami speaking only. is at bedside. Patient was medicated in ER before coming upstairs to 4 north. Denies pain at this time. Patient has no medical history or surgical history. Will continue to monitor.
[2021-06-08 23:27] VITALS: BP 92/53
[2021-06-09 02:37] VITALS: BP 167/59
[2021-06-09] MEDS: IV NORMAL SALINE 1000ML BAG 1,000 ML IV SCH (06:07)
[2021-06-09 07:00] VITALS: BP 111/44
[2021-06-09] MEDS: PANTOPRAZOLE IV PUSH 40 MG VIAL. IVP SCH (08:07)
--- NOTE | 2021-06-09 10:16 | PDOC ---
Date of Service: DATE: 06/09/21 TIME: 10:11 Subjective: Subjective: Denies abd pain. Passing flatus. No vomiting. "A little" flank/mid back pain. Tolerating clears. Objective: Vital Signs: Vital Signs Date Time Temp Pulse Resp B/P (MAP) Pulse Ox O2 Delivery O2 Flow Rate FiO2 06/09/21 08:00 Room Air 06/09/21 07:00 97.4 63 18 111/44 (66) 96 97.4 Imaging: AAS 06/09 pending PE: GEN: NAD LUNGS: CTAB HEART: RRR ABD: NABS, S/ND/NT NEURO/PSYCH: A & O 3 A/P: Abd pain, vomiting - resolved Enteritis/SBO per CT - interval x-ray pending -- Improved. Await x-ray, consider advancing diet. Justicifation of Admission Dx: Justifications for Admission: Justification of Admission Dx: Yes CALOS AZUL Jun 09, 2021 10:16
--- NOTE | 2021-06-09 10:36 | NUR ---
SW following. Discussed with RN, pt from home, room air, NPO. Surgery and GI following. Bowel rest and xrays tomorrow. Med Assist following for self pay status. SW will continue to follow.
--- NOTE | 2021-06-09 10:56 | PDOC ---
MAGALI YAN MANAGER [employer]UST 06/09/21 1056: SURGICAL PROGRESS NOTE DATE: 06/09/21 TIME: 10:55 Subjective feeling better, no abdominal pain some right flank pain no nausea + flatus Vital Signs Vital Signs Date Time Temp Pulse Resp B/P (MAP) Pulse Ox O2 Delivery O2 Flow Rate FiO2 06/09/21 08:00 Room Air 06/09/21 07:00 97.4 63 18 111/44 (66) 96 97.4 I&O Intake and Output 06/09/21 07:00 Intake Total 500 ml Output Total 650 ml Balance -150 ml Intake Oral 0 ml Other 500 ml Output Urine Total 650 ml # Voids 1 General: Alert, Oriented X3, Cooperative Abdomen: Soft, No tenderness Labs Laboratory Tests Test 06/08/21 03:00 06/08/21 06:30 White Blood Count 10.2 x10^3/uL (4.0-11.0) Red Blood Count 5.49 x10^6/uL (4.30-5.70) Hemoglobin 15.0 g/dL (13.0-17.5) Hematocrit 43.9 % (39.0-53.0) Mean Corpuscular Volume 80 fL (79-100) Mean Corpuscular Hemoglobin 27 pg (25-35) Mean Corpuscular Hemoglobin Concent 34 g/dL (31-37) Red Cell Distribution Width 13.8 % (11.5-14.5) Platelet Count 265 x10^3/uL (140-400) Neutrophils (%) (Auto) 69 % (31-73) Lymphocytes (%) (Auto) 23 % (24-48) Monocytes (%) (Auto) 7 % (0-9) Eosinophils (%) (Auto) 1 % (0-3) Basophils (%) (Auto) 0 % (0-3) Neutrophils # (Auto) 7.1 x10^3/uL (1.8-7.7) Lymphocytes # (Auto) 2.3 x10^3/uL (1.0-4.8) Monocytes # (Auto) 0.7 x10^3/uL (0.0-1.1) Eosinophils # (Auto) 0.1 x10^3/uL (0.0-0.7) Basophils # (Auto) 0.0 x10^3/uL (0.0-0.2) Sodium Level 139 mmol/L (136-145) Potassium Level 4.1 mmol/L (3.5-5.1) Chloride Level 104 mmol/L (98-107) Carbon Dioxide Level 28 mmol/L (21-32) Anion Gap 7 (6-14) Blood Urea Nitrogen 12 mg/dL (8-26) Creatinine 0.9 mg/dL (0.7-1.3) Estimated GFR (Cockcroft-Gault) 96.0 BUN/Creatinine Ratio 13 (6-20) Glucose Level 109 mg/dL (70-99) Calcium Level 8.8 mg/dL (8.5-10.1) Total Bilirubin 0.3 mg/dL (0.2-1.0) Aspartate Amino Transf (AST/SGOT) 27 U/L (15-37) Alanine Aminotransferase (ALT/SGPT) 45 U/L (16-63) Alkaline Phosphatase 62 U/L (46-116) Total Protein 7.1 g/dL (6.4-8.2) Albumin 4.0 g/dL (3.4-5.0) Albumin/Globulin Ratio 1.3 (1.0-1.7) Lipase 90 U/L (73-393) Urine Collection Type Unknown Urine Color Yellow Urine Clarity Clear Urine pH 7.0 (<5.0-8.0) Urine Specific [place] >=1.030 (1.000-1.030) Urine Protein Negative mg/dL (NEG-TRACE) Urine Glucose (UA) Negative mg/dL (NEG) Urine Ketones (Stick) Negative mg/dL (NEG) Urine Blood Negative (NEG) Urine Nitrite Negative (NEG) Urine Bilirubin Negative (NEG) Urine Urobilinogen Dipstick 0.2 mg/dL (0.2 mg/dL) Urine Leukocyte Esterase Negative (NEG) Urine RBC 0 /HPF (0-2) Urine WBC 0 /HPF (0-4) Urine Squamous Epithelial Cells Few /LPF Urine Bacteria 0 /HPF (0-FEW) Urine Opiates Screen Neg (NEG) Urine Methadone Screen Neg (NEG) Urine Barbiturates Neg (NEG) Urine Phencyclidine Screen Neg (NEG) Urine Amphetamine/Methamphetamine Neg (NEG) Urine Benzodiazepines Screen Neg (NEG) Urine Cocaine Screen Neg (NEG) Urine Cannabinoids Screen Neg (NEG) Urine Ethyl Alcohol Neg (NEG) Problem List Problems Medical Problems: (1) Small bowel obstruction Status: Acute Assessment/Plan xr reviewed, appears stable trial clears Justicifation of Admission Dx: Justifications for Admission: Justification of Admission Dx: Yes ANDREA NOGUEIRA MD 06/09/21 5377: SURGICAL PROGRESS NOTE Assessment/Plan Pt seen and examined. Agree with Ms. Yan's note Pt reports feeling better abd soft try clears MAGALI YAN MANAGER [employer] Jun 09, 2021 10:56 ANDREA NOGUEIRA MD Jun 09, 2021 18:57
[2021-06-09 11:00] VITALS: BP 103/56
--- NOTE | 2021-06-09 11:50 | PDOC ---
[facility] PROGRESS NOTE Date of Service DOS: DATE: 06/09/21 TIME: 11:45 Chief Complaint Chief Complaint Abd pain, vomiting - resolved Enteritis/SBO per CT - interval x-ray pending History of Present Illness History of Present Illness Patient 36-year-old male with no significant past medical history presents to ED with complaints of abdominal pain since yesterday around 1:00 PM. He reports periumbilical abdominal pain that radiates to his epigastric area with associated nausea and vomiting x2. States his last bowel movement was approximately 8 hours prior to arrival in the ED. Labs on admission were largely unremarkable. CT abdomen/pelvis showed dilated loops of small bowel in the left lower quadrant could reflect small bowel obstruction or enteritis. Will admit patient for further medical management. No abdominal pain tody. Passing flatus. No vomiting. Tolerated clear liquid diet Vitals/I&O Vitals/I&O: Vital Signs Date Time Temp Pulse Resp B/P (MAP) Pulse Ox O2 Delivery O2 Flow Rate FiO2 06/09/21 08:00 Room Air 06/09/21 07:00 97.4 63 18 111/44 (66) 96 97.4 I & O 06/08/21 06/08/21 06/09/21 15:00 23:00 07:00 Intake Total 0 ml 500 ml Output Total 0 ml 650 ml Balance 0 ml -150 ml Physical Exam General: Alert, Oriented X3, Cooperative Heart: Regular rate, Normal S1, Normal S2 Abdomen: Soft, No tenderness Extremities: No clubbing, No cyanosis Skin: No rashes, No breakdown Assessment and Plan Assessmemt and Plan Problems Medical Problems: (1) Small bowel obstruction Status: Acute Comment Review of Relevant I have reviewed the following items olvin (where applicable) has been applied. Justifications for Admission Other Justification VANCE PUENTE MD Jun 09, 2021 11:50
--- NOTE | 2021-06-09 14:56 | RAD ---
Three-view acute abdominal series. HISTORY: Small bowel obstruction 3 views were taken for an acute abdominal series. Comparison is made with the CT from one day ago. Tonya ngs are clear. Heart is normal in size. There is no effusion. There is no free air on the upright vie w the abdomen. There are no abnormal air-fluid levels. There is nonspecific small bowel gas. There is mild gas and stool in colon. IMPRESSION: 1. No acute infiltrates. 2. Nonspecific small bowel gas with a mild improvement compared to the CT. Electronically signed by: David Fernandes MD (06/09/2021 2:54 PM) [facility]
[2021-06-09 15:00] VITALS: BP 121/63
--- NOTE | 2021-06-09 19:09 | PDOC3 ---
Discharge Summary Visit Information Date of Admission: Jun 08, 2021 Date of Discharge: Jun 09, 2021 Admitting Diagnosis: SBO, enteritis Final Diagnosis Problems Medical Problems: (1) Small bowel obstruction Status: Acute Brief Hospital Course Allergies Allergies Coded Allergies Type Severity Reaction Last Updated Verified No Known Drug Allergies 06/08/21 No Vital Signs Vital Signs Date Time Temp Pulse Resp B/P (MAP) Pulse Ox O2 Delivery O2 Flow Rate FiO2 06/09/21 15:00 97.8 61 17 121/63 (82) 96 Room Air 97.8 Lab Results Laboratory Tests Test 06/08/21 03:00 06/08/21 06:30 White Blood Count 10.2 x10^3/uL (4.0-11.0) Red Blood Count 5.49 x10^6/uL (4.30-5.70) Hemoglobin 15.0 g/dL (13.0-17.5) Hematocrit 43.9 % (39.0-53.0) Mean Corpuscular Volume 80 fL (79-100) Mean Corpuscular Hemoglobin 27 pg (25-35) Mean Corpuscular Hemoglobin Concent 34 g/dL (31-37) Red Cell Distribution Width 13.8 % (11.5-14.5) Platelet Count 265 x10^3/uL (140-400) Neutrophils (%) (Auto) 69 % (31-73) Lymphocytes (%) (Auto) 23 % (24-48) Monocytes (%) (Auto) 7 % (0-9) Eosinophils (%) (Auto) 1 % (0-3) Basophils (%) (Auto) 0 % (0-3) Neutrophils # (Auto) 7.1 x10^3/uL (1.8-7.7) Lymphocytes # (Auto) 2.3 x10^3/uL (1.0-4.8) Monocytes # (Auto) 0.7 x10^3/uL (0.0-1.1) Eosinophils # (Auto) 0.1 x10^3/uL (0.0-0.7) Basophils # (Auto) 0.0 x10^3/uL (0.0-0.2) Sodium Level 139 mmol/L (136-145) Potassium Level 4.1 mmol/L (3.5-5.1) Chloride Level 104 mmol/L (98-107) Carbon Dioxide Level 28 mmol/L (21-32) Anion Gap 7 (6-14) Blood Urea Nitrogen 12 mg/dL (8-26) Creatinine 0.9 mg/dL (0.7-1.3) Estimated GFR (Cockcroft-Gault) 96.0 BUN/Creatinine Ratio 13 (6-20) Glucose Level 109 mg/dL (70-99) Calcium Level 8.8 mg/dL (8.5-10.1) Total Bilirubin 0.3 mg/dL (0.2-1.0) Aspartate Amino Transf (AST/SGOT) 27 U/L (15-37) Alanine Aminotransferase (ALT/SGPT) 45 U/L (16-63) Alkaline Phosphatase 62 U/L (46-116) Total Protein 7.1 g/dL (6.4-8.2) Albumin 4.0 g/dL (3.4-5.0) Albumin/Globulin Ratio 1.3 (1.0-1.7) Lipase 90 U/L (73-393) Urine Collection Type Unknown Urine Color Yellow Urine Clarity Clear Urine pH 7.0 (<5.0-8.0) Urine Specific [place] >=1.030 (1.000-1.030) Urine Protein Negative mg/dL (NEG-TRACE) Urine Glucose (UA) Negative mg/dL (NEG) Urine Ketones (Stick) Negative mg/dL (NEG) Urine Blood Negative (NEG) Urine Nitrite Negative (NEG) Urine Bilirubin Negative (NEG) Urine Urobilinogen Dipstick 0.2 mg/dL (0.2 mg/dL) Urine Leukocyte Esterase Negative (NEG) Urine RBC 0 /HPF (0-2) Urine WBC 0 /HPF (0-4) Urine Squamous Epithelial Cells Few /LPF Urine Bacteria 0 /HPF (0-FEW) Urine Opiates Screen Neg (NEG) Urine Methadone Screen Neg (NEG) Urine Barbiturates Neg (NEG) Urine Phencyclidine Screen Neg (NEG) Urine Amphetamine/Methamphetamine Neg (NEG) Urine Benzodiazepines Screen Neg (NEG) Urine Cocaine Screen Neg (NEG) Urine Cannabinoids Screen Neg (NEG) Urine Ethyl Alcohol Neg (NEG) Brief Hospital Course Patient 36-year-old male with no significant past medical history presents to ED with complaints of abdominal pain since yesterday around 1:00 PM. He reports periumbilical abdominal pain that radiates to his epigastric area with associated nausea and vomiting x2. States his last bowel movement was approximately 8 hours prior to arrival in the ED. Labs on admission were largely unremarkable. CT abdomen/pelvis showed dilated loops of small bowel in the left lower quadrant could reflect small bowel obstruction or enteritis. Will admit patient for further medical management. Consults: General surgery, GI 06/09: No abdominal pain today. Passing flatus. No vomiting. Tolerated clear liquid diet. Small bowel series with no concern for SBO. Ate a regular diet for dinner pain free. Likely self-limiting enteritis with SBO that quickly resolved with NPO 24 hours. Can f/u outpatient with GI as concern for outpatient workup for IBD may eventually be necessary. Problem list: Abd pain, vomiting - resolved Enteritis/SBO per CT - interval x-ray improved, able to tolerate PO well. Greater than 30 minutes spent on d/c Discharge Information Condition at Discharge: Improved Follow Up: Weeks (2) Disposition/Orders: D/C to Home No Active Prescriptions or Reported Meds Justicifation of Admission Dx: Justifications for Admission: Justification of Admission Dx: Yes VANCE PUENTE MD Jun 09, 2021 19:09
--- NOTE | 2021-06-09 19:24 | NUR ---
spoke with [facility] . he denied pain or nausea. spoke with for verification. he ate 100% of regular tray. no flinching upon palpation of abdomen. reviewed orally discharge instructions with on phone. she will return in hour to pick him up
--- NOTE | 2021-06-09 20:20 | NUR ---
Patient discharged to 1st floor ambulatory accompanied by nursing staffing coordinator. Printed information given to patient's . Verbalized understanding of information given.
[2021-06-10] MEDS ORDERED: PANTOPRAZOLE 40 MG TABLET.DR. PO SCH (07:30)
== END 2021-06-09 20:20 | disposition home or self-care (01) | DRG 389 ==
LOC: ER 20:29 → ED HOLD 06-08 05:20 → 4 NORTH 06-08 19:20
PROVIDERS: ADMIT Internal Medicine; ATTEND Internal Medicine
DX: K56.609 Unspecified intestinal obstruction, unspecified as to partial versus complete obstruction (principal); A09 Infectious gastroenteritis and colitis, unspecified; K21.9 Gastro-esophageal reflux disease without esophagitis
CPT/HCPCS: 36415; 74022; 74177; 80053; 80307; 81001; 83690; 85025; 96361; 96374; C9113; J2405; J7030; J7040; Q9967; 99285-25; G0378